=== PATIENT | male | born 1965 | race Caucasian/White ===

== ENCOUNTER 2018-06-03 17:10 | Emergency (ER) | payer SELFPAY ==
[2018-06-03] MEDS ORDERED: Dextrose 50% SYRINGE Inj (50 ml) ONE (17:23)
[2018-06-03] MEDS ORDERED: Dextrose 50% SYRINGE Inj (50 ml) IVP ONE (17:30)
--- NOTE | 2018-06-03 17:34 | ED PDOC ---
HPI: Altered Mental Status Chief Complaint (Provider): ALTERED MENTATION History Per: Patient (52 Y/O MALE H/O IDDM HERE FOR EVALUATION OF ALTERED MENTAL STATUS NOTED TODAY WHEN HE STARTED YELLING AT [employer]ILDREN AND ACTING [employer]IZA[employer]. GLUCOSE NOTED 45 BY EMS AND GLUCOSE GIVEN AT THAT TIME. PATIENT STATES HIS BODY HURTS. STATES SHE NOTED HIM POUND CHEST YESTERDAY MULTIPLE TIMES. PATIENT TAKES LEVEMIR 65 UNITS IN AM ALONG WITH METFORMIN 1000MG (BID); ACTOS 65 TODAY; GLIMEPERIDE 4MG TODAY.) <Katelyn Meng - Last Filed: 06/03/18 19:58> <Leticia Wayne - Last Filed: 06/03/18 22:50> Time Seen by Provider: 06/03/18 17:32 Chief Complaint (Nursing): Altered Mental Status Supervising Attending Note - Supervising Attending Note The Documented history was done by the: Physician Flying Shear Operator, Attending Physician The documented physical exam was done by the: Physician Flying Shear Operator, Attending Physician - Attestation: I have personally seen and examined this patient.: Yes I have fully participated in the care of the patient.: Yes I have reviewed all pertinent clinical information: Yes - Notes: Notes:: At bedside on arrival. Pt drinking fruit juice but mental status still confused. LEFT forearm IV 18g placed by me for stat infusion of d50. Pt became more alert and conversive after infusion. Maintained this mental status 30 minutes and 1 hour later as well. <Leticia Wayne - Last Filed: 06/03/18 22:50> Past Medical History Reviewed: Historical Data, Nursing Documentation, Vital Signs Vital Signs: Last Vital Signs Temp 96 F L 06/03/18 17:11 Pulse 78 06/03/18 17:11 Resp 18 06/03/18 17:11 BP 165/73 H 06/03/18 17:11 Pulse Ox 99 06/03/18 17:11 - Medical History PMH: Diabetes, HTN, Hypercholesterolemia Denies: HIV, Chronic Kidney Disease - Family History Family History: States: No Known Family Hx <Katelyn Meng - Last Filed: 06/03/18 19:58> Vital Signs: Last Vital Signs Temp 98.1 F 06/03/18 21:37 Pulse 73 06/03/18 21:37 Resp 17 06/03/18 21:37 BP 136/84 06/03/18 21:37 Pulse Ox 99 06/03/18 21:54 <Leticia Wayne - Last Filed: 06/03/18 22:50> - Home Medications Home Medications: Ambulatory Orders Medication Instructions Recorded Insulin Glargine, Recombina 40 unit SC DAILY 11/14/15 [Lantus] MetFORMIN [glucoPHAGE] 1,000 mg PO BID 11/14/15 Aspirin [Adult Low Dose Aspirin EC] 81 mg PO DAILY #0 tablet. 11/15/15 Atorvastatin Calcium [Lipitor] 20 mg PO DAILY #0 tablet 11/15/15 Lisinopril [Zestril] 5 mg PO DAILY #0 tablet 11/15/15 - Allergies Allergies/Adverse Reactions: Allergies Allergy/AdvReac Type Severity Reaction Status Date / Time No Known Allergies Allergy Verified 11/14/15 12:42 Review of Systems ROS Statement: Except As Marked, All Systems Reviewed And Found Negative <Katelyn Meng - Last Filed: 06/03/18 19:58> Physical Exam - Reviewed Nursing Documentation Reviewed: Yes Vital Signs Reviewed: Yes - Physical Exam Appears: Positive for: Well, Non-toxic, No Acute Distress Head Exam: Positive for: ATRAUMATIC, NORMAL INSPECTION, NORMOCEPHALIC Skin: Positive for: Normal Color, Warm, DRY Eye Exam: Positive for: EOMI, Normal appearance, PERRL ENT: Positive for: Normal ENT Inspection Neck: Positive for: Normal, Painless ROM Cardiovascular/Chest: Positive for: Regular Rate, Rhythm Respiratory: Positive for: CNT, Normal Breath Sounds Gastrointestinal/Abdominal: Positive for: Normal Exam, Soft Back: Positive for: Normal Inspection Extremity: Positive for: Normal ROM Neurologic/Psych: Positive for: Alert, Oriented, Other (BIZARRE BEHAVIOR NOTED.) <Katelyn Meng - Last Filed: 06/03/18 19:58> - Laboratory Results Result Diagrams: 06/03/18 18:00 06/03/18 18:00 - ECG O2 Sat by Pulse Oximetry: 99 - Progress ED Course And Treament: 1 AMP D50 IV X 1 DOSE EKG: NSR 96BPM; NO ECTOPY NO ACUTE HCNAGES QT390/492 REPEAT BLOOD GLUCOSE 177 <Katelyn Meng - Last Filed: 06/03/18 19:58> - Laboratory Results Result Diagrams: 06/03/18 18:00 06/03/18 18:00 - Critical Care Total Time (In Min): 30 Documented Critical Care: Time excludes all time spent performint seperately billable procedures <Leticia Wayne - Last Filed: 06/03/18 22:50> Disposition - Patient ED Disposition Is Patient to be Admitted: Transfer of Care - Disposition Disposition: Transfer of Care Disposition Time: 19:58 Patient Signed Over To: Jennifer Roberts Handoff Comments: REPEAT ACCUCHECK X 2 <Katelyn Meng - Last Filed: 06/03/18 19:58> <Leticia Wayne - Last Filed: 06/03/18 22:50> - Clinical Impression Clinical Impression: Hypoglycemia - Disposition Condition: IMPROVED Instructions: Low Blood Sugar in People With Diabetes Forms: [facility] (Bengali) Print Language: SWEDISH
[2018-06-03] MEDS ORDERED: Dextrose 5%/0.45% NS 1,000 ML IV SCH (17:45)
[2018-06-03 18:09] LABS: BASO % 0.3 % (0.0-2.0); EOS # 0.1 K/uL (0.0-0.7); EOS % 0.6 % (0.0-4.0); HEMOGLOBIN 13.7 g/dL (12.0-18.0); LYMPH % 12.5 % (20.0-40.0); MEAN CELL VOLUME 86.7 fl (80.0-94.0); MEAN CORPUSCULAR HEMOGLOBIN 28.8 pg (27.0-31.0); MEAN CORPUSCULAR HGB CONC 33.2 g/dL (33.0-37.0); MEAN PLATELET VOLUME 10.2 fl (7.2-11.7); MONO % 6.2 % (0.0-10.0); NEUT # 12.9 K/uL (1.8-7.0); NEUT % 80.4 % (50.0-75.0); RBC 4.76 Mil/uL (4.40-5.90); RED CELL DISTRIBUTION WIDTH 13.9 % (11.5-14.5); WHITE BLOOD COUNT 16.1 K/uL (4.8-10.8)
[2018-06-03 18:31] LABS: ALB/GLOB RATIO 1.4 (1.0-2.1); ALBUMIN 3.8 g/dL (3.5-5.0); ALT/SGPT 48 U/L (21-72); AST/SGOT 35 U/L (17-59); BLOOD UREA NITROGEN 15 mg/dl (9-20); CALCIUM 8.7 mg/dL (8.4-10.2); GFR NON-AFRICAN AMERICAN > 60
[2018-06-03 19:18] LABS: URINE BILIRUBIN NEGATIVE (NEGATIVE); URINE BLOOD NEGATIVE (NEGATIVE); URINE CLARITY CLEAR (Clear); URINE COLOR YELLOW (YELLOW); URINE GLUCOSE (UA) >=500 mg/dL (Normal); URINE LEUKOCYTE ESTERASE NEG Leu/uL (Negative); URINE PROTEIN NEGATIVE (NEGATIVE); URINE UROBILINOGEN 0.2-1.0 mg/dL (0.2-1.0)
[2018-06-03 19:34] LABS: BARBITURATES, UR NEGATIVE (NEGATIVE); BENZODIAZEPINES, UR NEGATIVE (NEGATIVE); OPIATES, UR NEGATIVE (NEGATIVE); PHENCYCLIDINE, UR NEGATIVE (NEGATIVE)
[2018-06-03] MEDS ORDERED: Potassium Chloride 20 mEq ER Tab PO STA (19:55)
[2018-06-03 21:38] VITALS: BP 136/84; PULSE 73; RESP 17; TEMP 98.1
[2018-06-03 21:53] VITALS: O2SAT 99
--- NOTE | 2018-06-03 21:53 | ED PDOC ---
- Laboratory Results Result Diagrams: 06/03/18 18:00 06/03/18 18:00 - ECG O2 Sat by Pulse Oximetry: 99 - Progress ED Course And Treament: Case endorsed to narrative writer from [employer] pending re-eval 20:30 accucheck 226 Patient resting comfortably; no complaints 21:30 186 Patient resting comfortably; states he is feeling better States he did not eat when he took his diabetes medications today Patient educated on findings, discharged with instructions to follow up with PMD within 2-3 days Monitor sugars at home. Return precautions given Patient demonstrates full understanding of discharge instructions (via [employer] special procedure tech/certified market news reporter) Patient requires no further intervention in the ED and is stable for discharge at this time Disposition - Clinical Impression Clinical Impression: Hypoglycemia - POA Present On Arrival: None - Disposition Disposition: Routine/Home Disposition Time: 21:53 Condition: IMPROVED Instructions: Low Blood Sugar in People With Diabetes Forms: [facility] (Norwegian) Print Language: LITHUANIAN
--- NOTE | 2018-06-04 06:37 | CARD ---
APPROVED REPORT Date of service: 06/03/2018 EKG Measurement Heart [id number] <Conclusion> Normal sinus rhythm Prolonged QT Abnormal ECG
== END 2018-06-03 22:32 | disposition home or self-care (01) ==
LOC: H.ER 17:10
DX: E16.2 Hypoglycemia, unspecified (principal); E11.9 Type 2 diabetes mellitus without complications; E78.00 Pure hypercholesterolemia, unspecified; I10 Essential (primary) hypertension; Z79.4 Long term (current) use of insulin; Z79.82 Long term (current) use of aspirin
CPT/HCPCS: 80053; 81003; 82948; 83735; 84484; 85025; 93005; 96361; 96374; 99285; G0480; J7042